=== PATIENT | female | born 1955 | race Caucasian/White ===

== ENCOUNTER → 2020-01-17 09:07 | Outpatient (CLI) | payer MEDICARE, MEDICAID, SELFPAY ==
--- NOTE | 2020-01-17 09:10 | CA_ITS ---
APPROVED REPORT EXAM: Comprehensive 2D, Doppler, and color-flow Echocardiogram Air Plant Engineer: Cinda Isabel CRT Ht: 5 ft 4 in Wt: 268lbs BSA: 2.22 BP: 189/66 mmHg Indications: CAD, Hyperlipidemia, Hypertension/HDD 2D Dimensions LVOT 2.09 cm (M/F) 1.5-2.5 M-Mode Dimensions RVDd 2.86 cm (0.9-2.6) LA Diam 4.26 cm (1.9-4.0) LVDd 5.09 cm (3.5-5.7) Ao Diam 3.96 cm (2.0-3.7) LVDs 3.10 cm (3.5-5.7) IVSd 1.41 cm (0.6-1.1) PWd 1.12 cm (0.6-1.1) EF (Teich) 69.20% FS 39.10% EDV (Teich) 123.20 mL ESV (Teich) 37.90 mL LV Diastology E Decel Time 150.00 (160-240 msec) E/A Ratio 1.9 MED E' 7.20 (< 7 cm/sec) E'/MED E' Ratio 16.28 (>14) LAT E' 8.10 (<10 cm/sec) E/LAT E' Ratio 14.47 (>14) Aortic Valve AO Peak GR. 7.70 mmHg Mitral Valve MV E Max Michael. 117.00 (40-130 cm/s) MV A Velocity 62.00 (40-130 cm/s) E/A Ratio 1.88 MV Decel. Time 150.00 (160-240 ms) MV PHT 44.00 ms Pulmonary Valve PV Peak Velocity 80.00 (50-150 cm/s) Tricuspid Valve TR P. Velocity 300.00 cm/s RAP Estimate 10.00 mmHg RVSP 46.00 mmHg Left Ventricle Left atrium is mildly enlarged, left ventricle is normal size, mild concentric left ventricular hypertrophy, visually estimated ejection fraction 55% with no regional wall motion abnormality, grade 2 diastolic dysfunction seen with tissue Doppler evidence of raise left atrial pressure. Right Ventricle Right atrium and right ventricle mildly enlarged with normal contractility. Aortic Valve Aortic valve is minimally thickened and fibrosed, there is no aortic stenosis or aortic insufficiency. Mitral Valve Mitral valve grossly normal, there is mild mitral regurgitation. Tricuspid Valve Tricuspid valve is grossly normal, there is mild tricuspid regurgitation, tricuspid regurgitation jet velocity is inadequate for calculation of the right ventricular systolic pressure. Pulmonic Valve Pulmonic valve is poorly visualized. Great Vessels Aortic root is normal size. Pericardium No significant pericardial effusion noted. Conclusion 1. Technically difficult study because of the patient factors and poor acoustic windows. 2. Mild biatrial alignment, normal left ventricular size, mild concentric left ventricular hypertrophy, visually estimated ejection fraction 55% with no regional wall motion abnormality, grade 2 diastolic dysfunction seen with tissue Doppler evidence of raise left atrial pressure. 3. Mild mitral and tricuspid regurgitation. 4. Mildly enlarged right ventricle with normal contractility. 5. No significant pericardial effusion noted. Electronically signed by : Angel Lucero, 01/18/2020 05:33:14
== END ==
PROVIDERS: PCP Physician Assistant Medical; Visit Provider Urology
DX: E78.2 Mixed hyperlipidemia (principal); I11.0 Hypertensive heart disease with heart failure; I25.10 Atherosclerotic heart disease of native coronary artery without angina pectoris; I50.32 Chronic diastolic (congestive) heart failure; R94.31 Abnormal electrocardiogram [ECG] [EKG]
CPT/HCPCS: 93306

== ENCOUNTER → 2021-12-03 10:20 | Outpatient (CLI) | payer MEDICARE, MEDICAID, SELFPAY ==
[2021-12-03 10:29] LABS: MANUAL DIFFERENTIAL MANUAL DIFFERENTIAL (MANUAL DIFF)
[2021-12-03 11:55] LABS: Basophils % 0.6 % (0.1-2.0); Eosinophils # 0.1 K/mm3 (0.0-0.4); Eosinophils % 1.3 % (0.1-12.0); Hemoglobin 12.2 g/dL (12.2-16.2); Lymphocytes % 17.3 % (10-50); Mean Corpuscular HGB Conc 32.9 g/dL (31.8-35.4); Mean Corpuscular Hemoglobin 27.8 pg (27.0-31.2); Mean Corpuscular Volume 84.4 fl (81-99); Mean Platelet Volume 8.6 fl (7.4-10.4); Monocytes # 0.5 K/mm3 (0.1-1.0); Monocytes % 8.1 % (1.7-9.3); Neutrophils # 4.3 K/mm3 (1.8-7.8); Neutrophils % 72.8 % (37.0-80.0); Platelet Count 238 K/mm3 (142-424); Red Blood Count 4.39 M/mm3 (4.20-5.40); Red Cell Distribution Width 15.5 % (11.5-17.5); White Blood Count 5.9 K/mm3 (4.8-10.8)
[2021-12-03 12:05] LABS: Lymphocytes % 16 % (10-50); Monocytes % 6 % (2-9); Neutrophils % 78 % (42-76); Platelet Estimate Normal; RBC Morphology Normal; Total Cells Counted 100
[2021-12-03 12:17] LABS: Anion Gap 15.7 mEq/L (5-15); Blood Urea Nitrogen 11 mg/dl (7-17); Calcium 9.4 mg/dl (8.4-10.2); Carbon Dioxide 27 mmol/L (22.0-30.0); Chloride 90 mmol/L (98-107); Estimated Glomerular Filt Rate 161 ml/min (>60); GFR (African American) 194 ML/MIN (>60); Glucose 121 mg/dl (74-100); Potassium 4.7 mmoL/L (3.5-5.1); Sodium 128 mmol/L (136-145)
== END ==
PROVIDERS: PCP Physician Assistant Medical; Visit Provider Internal Medicine
DX: I25.10 Atherosclerotic heart disease of native coronary artery without angina pectoris (principal)
CPT/HCPCS: 36415; 80048; 85007; 85014; 85018; 85048; 85049

== ENCOUNTER → 2021-12-18 10:46 | Outpatient (CLI) | payer MEDICARE, MEDICAID, SELFPAY ==
--- NOTE | 2021-12-18 | CA_ITS ---
APPROVED REPORT Exam: Pharmacologic Technologist: Janet Bejarano, Ht: 5 ft 4 in Wt: 251 lbs BSA: 2.16 m2 HR: 58 bpm BP: 186/78 mmHg Rhythm: SINUS KRYSTYNA, POOR R WAVE PROGRESSION, CANNOT R/O OLD ANTERIOR MD Medical History Medical History: HTN, Hyperlipidemia, Diabetes Medications: Lisinopril,,,,, Aspirin,,,,, Metformin,,,,, Allopurinol,,,,, Pantoprazole,,,,, Carvedilol,,,,, Vit D3,,,,, Tolterodine ER,,,,, LoraTADINE,,,,, Tizanidine,,,,, AtorvaASTATIN,,,,, Oxcarbazepine,,,,, Allergies: HYDROCHLOROTHIAZIDR, CODEINE, IODINATED CONTRAST, TOLEMETIN Cardiac Risk Factors: HTN, Hyperlipidemia, Diabetes , FHX of CAD, Smoking Stress Test Details Test: LEXISCAN HR Resting HR: 58 bpm Max Heart Rate (APMHR): 156.476117 bpm Max HR Achieved: 77 bpm Target HR (85% APMHR): 132.067107 bpm % of APMHR: 49.36 Recovery HR: 66 bpm BP Resting BP: 186/78 mmHg Max BP: 186/78 mmHg Recovery BP: 162.0/71.0 mmHg ECG Resting ECG: SINUS KRYSTYNA, POOR R WAVE PROGRESSION, CANNOT R/O OLD ANTERIOR MD Clinical Exercise duration: 04:00 min Highest Stage Achieved: Exercise capacity: 1.0 METs Stress ECG Conclusion PT HAD SOA, HEAD DISCOMFORT, DISCOMFORT IN UPPER BACK. NO CP. NO SIGNIFICANT CHANGES. UNREMARKABLE LEXISCAN STRESS. MYOVIEW IMAGES REPORTED SEPARATELY. Electronically signed by : Angel Lucero MD 12/19/2021 06:11:38
--- NOTE | 2021-12-18 10:51 | CA_ITS ---
FINAL REPORT CLINICAL HISTORY: HTN,HLD,OBESITY FINDINGS: Aorta velocity: 181 cm/sec Right kidney: 12.6 cm. No evidence of hydronephrosis or mass. Right intrarenal RI: 0.78 Right renal artery velocity: 189 cm/sec. Right RAR (Renal artery-Aortic Ratio): 1.04 Left Kidney: 12.0 cm. No evidence of hydronephrosis or mass. Left intrarenal RI: 0.74 Left renal artery velocity: 190 cm/sec. Left RAR (Renal Artery-Aortic Ratio): 1.05 IMPRESSION: Less than 60% bilateral renal artery stenosis. If indicated, CTA or catheter directed angiography could further evaluate. Reviewed, Interpreted and Dictated by Adelso Low III, MD Transcribed by Kris Reyes Authenticated and [facility]
--- NOTE | 2021-12-18 11:17 | NM_ITS ---
APPROVED REPORT Exam: Nuclear Stress Test Indication: chest pain..short of breath..fatigue Patient Location: Outpatient Stress Tech: Janet Bejarano NM Tech:Jayla YatesELLA RT (R)(N)(M) Ht: 5 ft 3 in Wt: 251 lbs Bra Size: 46c HR: 58 bpm BP: 186/78 mmHg BSA: 2.13 m2 TID: 1.27 BMI: 44.4 History: chest pain..short of breath..fatigue Procedure: Patient received a 0.4 mg of intravenous Lexiscan, resting heart rate 58 bpm, resting blood pressure 186/78 mmHg, with Lexiscan maximum heart rate achived was 77 bpm which is Less than 85 % of the maximum predicted heart rate and blood pressure was 150/57 mmHg. With Lexiscan, patient denied any complaint of chest pain. Electrocardiogram Resting electrocardiogram shows sinus bradycardia, with Lexiscan there is less than 1.[address] segment depression noted from the baseline EKG. The EKG portion of the Lexiscan is nondiagnostic. Cardiac Stress and Resting SPECT Images: Cardiac Stress and Resting SPECT images were obtained using technetium 99m Myoview 30.6 mCi stress and 9.97 mCi at rest. Gated SPECT analysis of segmental wall motion and calculation of ejection fraction also done. Prone images were also obtained. Cardiac stress and rest SPECT images show a mild fixed defect in the inferior wall which normalizes on the prone images is likely secondary to his soft tissue attenuation, no reversible ischemia seen, computer derived ejection fraction is 58% with no regional wall motion abnormality, right ventricle is normal size and contractility. Conclusion: 1. The EKG portion of the Lexiscan is nondiagnostic. 2. No scintigraphic evidence of reversible ischemia seen, computer derived ejection fraction is 58% with no regional wall motion abnormality, right ventricle is normal size and contractility. 3. Normal Lexiscan Myoview study. Electronically signed by : Angel Lucero MD 12/19/2021 06:15:13
== END ==
PROVIDERS: PCP Family Medicine; Visit Provider Nurse Practitioner Family
DX: I10 Essential (primary) hypertension (principal); I50.32 Chronic diastolic (congestive) heart failure
CPT/HCPCS: 78452; 93017; 93976; A9502; J2785

== ENCOUNTER → 2022-01-02 13:01 | Outpatient (CLI) | payer MEDICARE, MEDICAID, SELFPAY ==
--- NOTE | 2022-01-02 13:03 | CA_ITS ---
APPROVED REPORT EXAM: Comprehensive 2D, Doppler, and color-flow Echocardiogram Supervisor Nuclear Medicine: Bertha Calixto RVT Ht: 5 ft 4 in Wt: 251lbs BSA: 2.16 BP: 182/81 mmHg Indications: soa,chf,cad,may,obesity,htn,hld,dm,ex-smoker 2D Dimensions LVOT 2.17 cm (M/F) 1.5-2.5 LA Volume 35.50 mL LA Volume Index 16.51 mL/m2 (M/F) 16-34 M-Mode Dimensions RVDd 3.56 cm (0.9-2.6) LA Diam 4.84 cm (1.9-4.0) LVDd 4.49 cm (3.5-5.7) Ao Diam 2.91 cm (2.0-3.7) LVDs 2.77 cm (3.5-5.7) IVSd 0.57 cm (0.6-1.1) PWd 0.66 cm (0.6-1.1) EF (Teich) 68.70% FS 38.30% EDV (Teich) 92.00 mL TAPSE 2.45 (<1.7) ESV (Teich) 28.80 mL LV Diastology E Decel Time 300.00 (160-240 msec) E/A Ratio 0.9 MED E' 5.60 (< 7 cm/sec) E'/MED E' Ratio 9.79 (>14) LAT E' 6.50 (<10 cm/sec) E/LAT E' Ratio 8.43 (>14) Aortic Valve AO Peak GR. 4.20 mmHg Mitral Valve MV E Max Michael. 55.00 (40-130 cm/s) MV A Velocity 58.00 (40-130 cm/s) E/A Ratio 0.94 MV Decel. Time 300.00 (160-240 ms) MV PHT 88.00 ms Pulmonary Valve PV Peak Velocity 93.00 (50-150 cm/s) Tricuspid Valve TR P. Velocity 276.00 cm/s RAP Estimate 10.00 mmHg RVSP 40.50 mmHg Left Ventricle Left atrium is mildly enlarged left ventricle normal size mild concentric left ventricular hypertrophy, estimated ejection fraction 55% with no regional wall motion abnormality, grade 1 diastolic dysfunction seen without tissue Doppler evidence of raise left atrial pressure. Right Ventricle Right atrium and right ventricle are mildly enlarged with normal contractility. Aortic Valve Aortic valve is minimally thickened and fibrosed there is no aortic stenosis or aortic insufficiency. Mitral Valve Mitral valve grossly normal, there is trace mitral regurgitation. Tricuspid Valve Tricuspid grossly normal, there is trace tricuspid regurgitation, tricuspid rotation replacement is inadequate for calculation of the right ventricular systolic pressure. Pulmonic Valve Pulmonic valve is poorly visualized. Great Vessels Aortic root is normal size. Pericardium No significant pericardial effusion noted. Inferior vena cava is poorly visualized. Conclusion 1. Mild biatrial enlargement, normal left ventricular size, mild concentric left ventricular hypertrophy, estimated ejection fraction 55% with no regional wall motion abnormality, grade 1 diastolic dysfunction seen without tissue Doppler evidence of raise left atrial pressure. 2. Mildly dilated ventricle with normal contractility. 3. Trace mitral and tricuspid regurgitation. 4. No significant pericardial effusion noted. 5. Inferior vena cava is poorly visualized. Electronically signed by : Angel Lucero MD 01/02/2022 21:15:15
[2022-01-02 13:35] LABS: MANUAL DIFFERENTIAL MANUAL DIFFERENTIAL (MANUAL DIFF)
[2022-01-02 14:43] LABS: Basophils # 0.1 K/mm3 (0-0.2); Basophils % 0.7 % (0.1-2.0); Eosinophils # 0.1 K/mm3 (0.0-0.4); Eosinophils % 1.8 % (0.1-12.0); Hematocrit 37.6 % (37.0-47.0); Hemoglobin 12.4 g/dL (12.2-16.2); Lymphocytes # 1.1 K/mm3 (0.7-4.5); Lymphocytes % 16.8 % (10-50); Mean Corpuscular HGB Conc 32.9 g/dL (31.8-35.4); Mean Corpuscular Hemoglobin 27.3 pg (27.0-31.2); Mean Corpuscular Volume 82.8 fl (81-99); Mean Platelet Volume 7.5 fl (7.4-10.4); Monocytes # 0.6 K/mm3 (0.1-1.0); Neutrophils # 4.5 K/mm3 (1.8-7.8); Neutrophils % 70.7 % (37.0-80.0); Platelet Count 333 K/mm3 (142-424); Red Blood Count 4.54 M/mm3 (4.20-5.40); Red Cell Distribution Width 15.1 % (11.5-17.5); White Blood Count 6.4 K/mm3 (4.8-10.8)
[2022-01-02 15:15] LABS: Alanine Aminotransferase 26 U/L (12-78); Albumin Level 4.3 g/dl (3.5-5.0); Alkaline Phosphatase 127 U/L (38-126); Anion Gap 15.9 mEq/L (5-15); Aspartate Amino Transferase 34 U/L (14-36); Bilirubin,Direct 0.2 mg/dl (0.0-0.4); Bilirubin,Indirect 0.2 mg/dL (0.0-0.9); Bilirubin,Total 0.4 mg/dl (0.2-1.3); Bilirubin,Unconjugated 0.2 mg/dL (0.0-1.1); Blood Urea Nitrogen 12 mg/dl (7-17); Calcium 9.6 mg/dl (8.4-10.2); Carbon Dioxide 32 mmol/L (22.0-30.0); Chloride 84 mmol/L (98-107); Estimated Glomerular Filt Rate 84 ml/min (>60); GFR (African American) 102 ML/MIN (>60); Glucose 91 mg/dl (74-100); Potassium 4.9 mmoL/L (3.5-5.1); Sodium 127 mmol/L (136-145); Total Protein,Serum 6.9 g/dl (6.3-8.2)
[2022-01-02 15:25] LABS: Free T4 (Free Thyroxine) 0.95 ng/dl (0.78-2.19)
[2022-01-02 15:40] LABS: Thyroid Stimulating Hormone 1.49 uIU/mL (0.465-4.68)
[2022-01-02 17:01] LABS: Eosinophils % 1 % (0-3); Lymphocytes % 22 % (10-50); Monocytes % 5 % (2-9); Neutrophils % 71 % (42-76); Total Cells Counted 100
[2022-01-02 17:02] LABS: Platelet Estimate Normal; RBC Morphology Normal
[2022-01-11 14:55] LABS: 1,25 Dihydroxy Vitamin D 49 pg/mL (.); 1,25-Dihydroxy, Vitamin D-2 <10 pg/mL (.); 1,25-Dihydroxy, Vitamin D-3 49 pg/mL (.)
== END ==
PROVIDERS: Visit Provider Nurse Practitioner
DX: E11.9 Type 2 diabetes mellitus without complications (principal); E66.01 Morbid (severe) obesity due to excess calories; E78.2 Mixed hyperlipidemia; E87.1 Hypo-osmolality and hyponatremia; G47.33 Obstructive sleep apnea (adult) (pediatric); I11.0 Hypertensive heart disease with heart failure; I20.8 Other forms of angina pectoris; I27.9 Pulmonary heart disease, unspecified; I50.32 Chronic diastolic (congestive) heart failure; R06.00 Dyspnea, unspecified; R53.83 Other fatigue; Z79.84 Long term (current) use of oral hypoglycemic drugs; Z68.41 Body mass index [BMI] 40.0-44.9, adult
CPT/HCPCS: 36415; 80048; 80076; 82652; 84439; 84443; 85007; 85014; 85018; 85048; 85049; 93306

== ENCOUNTER 2023-11-07 18:51 | Emergency (ER) | payer MEDICARE, MEDICAID, SELFPAY ==
[2023-11-07 18:51] VITALS: BP 180/100; PULSE 70; RESP 13; TEMP 37.1; O2SAT 98; BMI 42.5
--- NOTE | 2023-11-07 18:51 | ECG_ITS ---
APPROVED REPORT Exam: Resting ECG HR:75 bpm ECG Measurements Heart Rate 75 AXES OK 200 P 71 QRSd 98 QRS -32 QT 377 T 48 QTc 406 Conclusion SINUS RHYTHM WITH OCCASIONAL VENTRICULAR PREMATURE COMPLEXES LEFT AXIS DEVIATION [QRS AXIS < -30] LOW QRS VOLTAGE IN PRECORDIAL LEADS [QRS DEFLECTION < 1.0 mV IN CHEST LEADS] MODERATE VOLTAGE CRITERIA FOR LVH, CONSIDER NORMAL VARIANT [MEETS CRITERIA IN ONE OF: R(aVL), S(V1), R(V5), R(V5/V6)+S(V1)] POSSIBLE ANTERIOR MYOCARDIAL INFARCTION , OF INDETERMINATE AGE [30 ms Q WAVE IN V3/V4, OR R < 0.2 mV IN V4] ABNORMAL ECG Electronically signed by : JANIYA HAZEL, 11/11/2023 18:23:36
--- NOTE | 2023-11-07 18:58 | XR_ITS ---
PROCEDURE INFORMATION: Exam: XR Chest Exam date and time: 11/07/2023 7:00 PM Age: 68 years old Clinical indication: Pain; Chest pressure; Additional info: Cp hypertension TECHNIQUE: Imaging protocol: Radiologic exam of the chest. Views: 1 view. COMPARISON: No relevant prior studies available. FINDINGS: Lungs: No evidence of acute pulmonary disease or infiltrates Pleural spaces: No large effusion or pneumothorax. Heart/Mediastinum: No evidence of mediastinal widening or cardiac silhouette enlargement; the mediastinum and heart appear within normal limits for contour and size. Vasculature: There are calcifications of the aortic arch. Bones/joints: No evidence of acute osseous abnormalities within the visualized portions of the thoracic spine and ribs. Osseous structures appear appropriate for patient age. IMPRESSION: No dense parenchymal consolidation, pleural effusion, or pneumothorax.
[2023-11-07 19:12] LABS: Lactate Venous 1.8 mmol/L (0.4-2.0); VBG Base Excess 8.3 mmol/L (-2.4-2.3); VBG HCO3 32.7 mmol/L (23-30); VBG Oxygen Saturation 77.2 % (50-70); VBG PH 7.42 mmol/L (7.31-7.41); VBG PO2 42.1 mmol/L (28-40); VBG Total CO2 34.3 mmol/L (23-27)
[2023-11-07 19:12] LABS: Basophils # 0.1 K/mm3 (0-0.2); Eosinophils # 0.1 K/mm3 (0.0-0.4); Hematocrit 44.6 % (37.0-47.0); Hemoglobin 14.4 g/dL (12.2-16.2); Lymphocytes # 1.1 K/mm3 (0.7-4.5); Lymphocytes % 15.1 % (10-50); Mean Corpuscular HGB Conc 32.3 g/dL (31.8-35.4); Mean Corpuscular Hemoglobin 30.8 pg (27.0-31.2); Mean Corpuscular Volume 95.3 fl (81-99); Mean Platelet Volume 8.3 fl (7.4-10.4); Monocytes # 0.5 K/mm3 (0.1-1.0); Monocytes % 6.6 % (1.7-9.3); Neutrophils # 5.5 K/mm3 (1.8-7.8); Neutrophils % 76.2 % (37.0-80.0); Platelet Count 236 K/mm3 (142-424); Red Blood Count 4.68 M/mm3 (4.20-5.40); Red Cell Distribution Width 14.3 % (11.5-17.5); White Blood Count 7.2 K/mm3 (4.8-10.8)
[2023-11-07] MEDS: ASPIRIN 81MG CHEWABLE TABLET 324 MG PO (19:12)
[2023-11-07 19:14] LABS: VBG PCO2 51.2 mmol/L (35-51)
--- NOTE | 2023-11-07 19:15 | PC.NURSE ---
Received critical from lab on patient VBG. aware of values. See lab results.
[2023-11-07 19:17] LABS: INR 0.92 (0.9-1.1); Prothrombin Time 10.4 seconds (10.1-12.5)
[2023-11-07 19:30] LABS: Alanine Aminotransferase 28 U/L (12-78); Albumin Level 4.2 g/dl (3.5-5.0); Albumin/Globulin Ratio 1.2 (1.1-1.8); Alkaline Phosphatase 92 U/L (38-126); Anion Gap 9.1 mEq/L (5-15); Aspartate Amino Transferase 35 U/L (14-36); Bilirubin,Total 0.6 mg/dl (0.2-1.3); Blood Urea Nitrogen 7 mg/dl (7-17); Calcium 10.1 mg/dl (8.4-10.2); Carbon Dioxide 34 mmol/L (22.0-30.0); Chloride 99 mmol/L (98-107); Chol/HDL Ratio 2.4 (1-3.5); Cholesterol 221 mg/dl (140-200); Creatinine Clearance Estimated 46 mL/min (50-200); Estimated Glomerular Filt Rate 160 ml/min (>60); GFR (African American) 193 ML/MIN (>60); Globulin 3.5 g/dL (1.3-3.2); Glucose 110 mg/dl (74-100); HDL Cholesterol 93 mg/dl (40-60); Lipase 35 U/L (23-300); Magnesium 1.4 mg/dl (1.6-2.3); Potassium 3.1 mmoL/L (3.5-5.1); Sodium 139 mmol/L (136-145); Total Protein,Serum 7.7 g/dl (6.3-8.2); Triglycerides 161 mg/dl (30-150); VLDL Cholesterol 32 mg/dL (0-40)
[2023-11-07] MEDS: NITROGLYCERIN 0.4MG SL TABLET 0.4 MG SL ×2 (19:35→20:39)
[2023-11-07 19:36] LABS: Activated Partial Thrombo Time 27.2 seconds (22.8-30.6)
--- NOTE | 2023-11-07 19:37 | ED_ITS ---
Discharge Plan Disposition Patient Disposition: Home, Self-Care Condition: Good Prescriptions Prescriptions: No Action allopurinol 300 mg tablet 300 mg PO DAILY amitriptyline 10 mg tablet 10 mg PO QHS aspirin [Aspir-Low] 81 mg tablet,delayed release (DR/EC) 81 mg PO DAILY loratadine [Allergy Relief (loratadine)] 10 mg tablet 10 mg PO DAILY PRN oxcarbazepine 150 mg tablet 600 mg PO QID PRN modafinil [Provigil] 200 mg tablet 200 mg PO QAM fluticasone propionate 50 mcg/actuation blister with device 1 inh INHALATION BID PRN vitamin [id number] B1 1,000-100 mg/mL solution IM .Q 2 weeks famotidine 40 mg tablet 40 mg PO BID budesonide 3 mg capsule,delayed,extend.release 6 mg PO DAILY Patient Comments: TAKE 2 CAPSULES BY MOUTH ONCE DAILY leflunomide 20 mg tablet 20 mg PO DAILY tizanidine 4 mg tablet 4 mg PO TID PRN metformin 1,000 mg tablet 1,000 mg PO BID Qty: 180 3RF lisinopril 40 mg tablet 40 mg PO DAILY Qty: 90 3RF hydralazine 50 mg tablet See Rx Instructions .ROUTE .COMPLEX Qty: 90 3RF Dose Instruction: TAKE ONE (1) TABLET BY MOUTH THREE TIMES A DAY Rx Instructions: TAKE ONE (1) TABLET BY MOUTH THREE TIMES A DAY nifedipine 90 mg tablet extended release 24hr See Rx Instructions .ROUTE .COMPLEX Qty: 180 1RF Dose Instruction: TAKE 1 TABLET BY MOUTH TWICE DAILY Rx Instructions: TAKE 1 TABLET BY MOUTH TWICE DAILY carvedilol 25 mg tablet See Rx Instructions .ROUTE .COMPLEX Qty: 180 1RF Dose Instruction: TAKE 1 TABLET BY MOUTH TWICE DAILY WITH FOOD Rx Instructions: TAKE 1 TABLET BY MOUTH TWICE DAILY WITH FOOD pantoprazole 40 mg tablet,delayed release (DR/EC) See Rx Instructions .ROUTE .COMPLEX Qty: 90 3RF Dose Instruction: TAKE ONE (1) TABLET BY MOUTH EVERY DAY Rx Instructions: TAKE ONE (1) TABLET BY MOUTH EVERY DAY atorvastatin [Lipitor] 40 mg tablet 40 mg PO DAILY Qty: 30 2RF Referrals Follow up/Referrals: Provider,Referral, MD [Primary Care Provider] - See instructions Activity Restrictions/Add. Instructions Additional Instructions/Restrictions: Call your family doctor to establish care for this visit to the emergency department and schedule follow-up within 48 hours to ensure improvement. If you have any worsening of your condition or any other concerning signs or symptoms, return to the emergency department or your primary care doctor for further evaluation. Talk to your doctor about follow-up potassium labs, possible potassium supplementation. Also call Dr. Pineda's office for further follow- up. Clinical Impressions Clinical Impression: Chest pressure Print Language Print Language: [place] Discharge ED Provider: Shyam Prajapati HPI General Chief Complaint: Chest Pain Stated Complaint: chest pain Time Seen by Provider: 11/07/23 18:58 Mode of Arrival: Ambulatory Source of Information: Patient Limitations: No Limitations Description of Symptoms (Recalled from ER Triage Doc. by RN): pt presents to ED with c/o heaviness in chest, hypertension, almost passed out. pt reports she has been having spells for the past week. pt does follow dr pineda, pt reports she does follow with dr pineda. History of Present Illness HPI narrative: Please note that above description of symptoms, in this electronic medical record under categorization of recalled from ER triage doctor by RN are reflective of an initial nursing assessment, however, is not reflective of my full history and physical exam that was personally taken and clarified. Consequentially, this preceding description of symptoms, which may include the patient's categorized chief complaint in the EMR, do not reflect my personal clinical impression, and the ultimate description of history of present illness and patient stated complaints should be deferred to this section of the note. Unless stated otherwise or congruent with this section of the note, additional signs, symptoms, or incongruence should be interpreted as inaccurate with my clinical impression. Related Data Home Medications ?Medication ?Instructions ?Recorded ?Confirmed allopurinol 300 mg tablet 300 mg PO DAILY 07/18/17 06/02/23 amitriptyline 10 mg tablet 10 mg PO QHS 07/18/17 06/02/23 aspirin 81 mg tablet,delayed 81 mg PO DAILY 07/18/17 06/02/23 release (Aspir-Low) loratadine 10 mg tablet (Allergy 10 mg PO DAILY PRN 09/01/17 06/02/23 Relief (loratadine)) vitamin [id number] B1 1,000 ml IM .Q 2 weeks 12/27/19 06/02/23 mcg-100 mg/mL injection solution leflunomide 20 mg tablet 20 mg PO DAILY 12/03/21 06/02/23 modafinil 200 mg tablet (Provigil) 200 mg PO QAM 12/03/21 06/02/23 oxcarbazepine 150 mg tablet 600 mg PO QID PRN 12/03/21 06/02/23 tizanidine 4 mg tablet 4 mg PO TID PRN 12/03/21 06/02/23 budesonide 3 mg 6 mg PO DAILY 06/02/23 06/02/23 capsule,delayed,extended release famotidine 40 mg tablet 40 mg PO BID 06/02/23 06/02/23 fluticasone propionate 50 1 inh inhalation BID PRN 06/02/23 06/02/23 mcg/actuation blister powder for inhalation Previous Rx's ?Medication ?Instructions ?Recorded metformin 1,000 mg tablet 1,000 mg PO BID #180 tabs 01/14/18 lisinopril 40 mg tablet 40 mg PO DAILY #90 tabs 03/05/23 hydralazine 50 mg tablet See Rx Instructions .Route 07/02/23 .COMPLEX #90 tabs nifedipine 90 mg tablet,extended See Rx Instructions .Route 08/12/23 release 24 hr .COMPLEX #180 tabs carvedilol 25 mg tablet See Rx Instructions .Route 09/18/23 .COMPLEX #180 tabs pantoprazole 40 mg tablet,delayed See Rx Instructions .Route 10/27/23 release .COMPLEX #90 tabs atorvastatin 40 mg tablet (Lipitor) 40 mg PO DAILY #30 tabs 11/04/23 Allergies Allergy/AdvReac Type Severity Reaction Status Date / Time hydrochlorothiazide Allergy Severe hyponatremi Verified 06/02/23 10:53 a codeine AdvReac Verified 06/02/23 10:53 Iodinated Contrast Media AdvReac Verified 06/02/23 10:53 [Iodinated Contrast Media - Oral and] tolmetin [From Tolectin] AdvReac Verified 06/02/23 10:53 [facility] Disclaimer: The information contained in this section may have been updated after the patient was seen, as this information can be updated by other users. Medical History Encounter for pre-operative cardiovascular clearance Malignant hypertension Dyspnea CAD (coronary artery disease) Diabetes mellitus Fatigue Chronic pulmonary heart disease Obstructive sleep apnea syndrome Hypertensive heart disease Hyperlipidemia Neuropathy Congestive heart failure (~07/22/16) Social History Smoking Status: Current every day smoker alcohol intake: never substance use type: denies use current occupational status: employed, unemployed and disabled Travel in the last 8 weeks: Inside the [place] ROS Obtained: Yes All systems reviewed & no additional complaints except as documented Physical Exam General General appearance: alert, in no apparent distress and anxious Neck Neck exam: Present trachea midline Chest Chest inspection: Present normal inspection and symmetric chest wall rise Respiratory Respiratory exam: Present normal lung sounds bilaterally; Absent respiratory distress, wheezes, stridor, accessory muscle use or prolonged expiratory phase Cardiovascular Cardiovascular exam: Present regular rate, normal rhythm and other (Pulses equal and symmetric in upper and lower extremities) Extremities Exam Extremities exam: Absent edema Neurological Exam Neurological exam: Present alert, oriented X3, CN II-XII intact and normal gait; Absent motor sensory deficit Skin Skin exam: Present warm and dry; Absent cyanosis, diaphoresis or pallor HEART Score HEART Score HEART Score assessment performed?: Yes History (anamnesis): Moderately suspicious ECG: Normal Age: >65 years Risk factors: 3 or more risk factors Troponin: </= normal limit HEART Score: 5 Critical Care Critical Care Time Critical Care Time: No Medical Decision Making Medical Records Medical records reviewed: Yes I reviewed the patient's medical records. Eric Inquiry Pt receiving controlled substance: No Eric was queried for this patient: No Vital Signs Vital Signs: 11/07/23 18:51 11/07/23 22:30 11/07/23 23:22 Temperature 98.7 F 97.9 F Temperature Source Oral Oral Pulse Rate 78 58 L Pulse Rate [Left Radial] 70 Respiratory Rate 13 16 Blood Pressure 164/54 H Blood Pressure [Right Arm] 180/100 H Blood Pressure Mean [Right Arm] 126 Blood Pressure Source Automatic Cuff Blood Pressure Position Sitting 02 Sat by Pulse Oximetry 98 Oxygen Delivery Method Room Air Room Air 11/07/23 23:24 Temperature 97.9 F Temperature Source Oral Pulse Rate 57 L Pulse Rate [Left Radial] Respiratory Rate 20 Blood Pressure 164/54 H Blood Pressure [Right Arm] Blood Pressure Mean [Right Arm] Blood Pressure Source Automatic Cuff Blood Pressure Position Supine 02 Sat by Pulse Oximetry Oxygen Delivery Method Room Air Lab Data Labs: Lab Results 11/07/23 18:54: WBC 7.2, RBC 4.68, Hgb 14.4, Hct 44.6, MCV 95.3, MCH 30.8, MCHC 32.3, RDW 14.3, Plt Count 236, MPV 8.3, Neut % (Auto) 76.2, Lymph % (Auto) 15.1, [place] % (Auto) 6.6, Eos % (Auto) 1.0, Baso % (Auto) 1.0, Neut # (Auto) 5.5, Lymph # (Auto) 1.1, [place] # (Auto) 0.5, Eos # (Auto) 0.1, Baso # (Auto) 0.1, PT 10.4, INR 0.92, APTT 27.2, D-Dimer 0.46, Sodium 139, Potassium 3.1 L, Chloride 99, C arbon Dioxide 34 H, Anion Gap 9.1, BUN 7, Creatinine 0.40 L, Estimated Creat Clear 46, Estimated GFR 160, Est GFR ( Amer) 193, Glucose 110 H, Hemoglobin A1c 5.5, Calcium 10.1, Magnesium 1.4 L, Total Bilirubin 0.6, AST 35, ALT 28, Alkaline Phosphatase 92, Troponin I < 0.01, NT-Pro-B Natriuret Pep 324 H , Total Protein 7.7, Albumin 4.2, Globulin 3.5 H, Albumin/Globulin Ratio 1.2, T riglycerides 161 H, Cholesterol 221 H, LDL Cholesterol Direct 81.36 L, VLDL Cholesterol 32, HDL Cholesterol 93 H, Cholesterol/HDL Ratio 2.4, Lipase 35, TSH 1.61, Thyroxine (T4) 10.3 11/07/23 19:01: Lactate 0.8 11/07/23 19:05: VBG pH 7.42 H, VBG pCO2 51.2 H, VBG pO2 42.1 H, VBG HCO3 32.7 H, VBG Total CO2 34.3 H, VBG O2 Saturation 77.2 H, VBG Base Excess 8.3 H, VBG Lactic Acid 1.8 11/07/23 22:08: Troponin I 0.02 11/07/23 18:54 11/07/23 18:54 Response Orders (Tests/Meds): ED MEDICATIONS Discontinued Medications Generic Name Dose Route Start Last Admin Trade Name Freq PRN Reason Stop Dose Admin Aspirin 324 mg 11/07/23 18:58 11/07/23 19:12 Aspirin 81mg Chewable Tablet PO 11/07/23 18:59 324 mg ONCE ONE Administration Furosemide 40 mg 11/07/23 20:42 11/07/23 20:48 Furosemide 40mg/4ml Vial IV 11/07/23 20:43 40 mg ONCE ONE Administration Magnesium Sulfate 2 gm in 50 mls @ 50 mls/hr 11/07/23 19:41 11/07/23 19:51 Magnesium Sulfate 2gm/50ml Premix IV 11/07/23 20:40 50 mls/hr ONCE ONE Administration Magnesium Oxide 800 mg 11/07/23 19:41 11/07/23 19:51 Magnesium Oxide 400mg Tablet PO 11/07/23 19:42 800 mg ONCE ONE Administration Nitroglycerin 0.4 mg 11/07/23 19:34 11/07/23 19:35 Nitroglycerin 0.4mg Sl Tablet SL 11/07/23 19:35 0.4 mg ONCE ONE Administration Nitroglycerin 0.4 mg 11/07/23 20:25 11/07/23 20:39 Nitroglycerin 0.4mg Sl Tablet SL 11/07/23 20:26 0.4 mg ONCE ONE Administration Potassium Chloride 60 meq 11/07/23 19:41 11/07/23 19:51 Potassium Chloride 20meq Tab PO 11/07/23 19:42 60 meq ONCE ONE Administration ORDERS Category Date Time Status XR chest portable Stat Exams 11/07/23 18:58 Completed Complete Blood Count Auto Diff Stat Lab 11/07/23 18:54 Completed Comprehensive Metabolic Panel Stat Lab 11/07/23 18:54 Completed D-Dimer Stat Lab 11/07/23 18:54 Completed Hemoglobin A1C Stat Lab 11/07/23 18:54 Completed Lactic Acid Stat Lab 11/07/23 19:01 Completed Lipase Stat Lab 11/07/23 18:54 Completed Lipid Panel Stat Lab 11/07/23 18:54 Completed Magnesium Stat Lab 11/07/23 18:54 Completed NT Pro Brain Natriuretic Pep. Stat Lab 11/07/23 18:54 Completed PT INR [Prothrombin Time INR] Stat Lab 11/07/23 18:54 Completed PTT [Activated Partial Thrombo Time] Stat Lab 11/07/23 18:54 Completed T4 (Thyroxine) Stat Lab 11/07/23 18:54 Completed TSH [Thyroid Stimulating Hormone] Stat Lab 11/07/23 18:54 Completed Troponin I Q3H Lab 11/07/23 22:08 Completed Troponin I Stat Lab 11/07/23 18:54 Completed Venous Blood Gas Stat RT 11/07/23 19:05 Completed MDM Narrative Medical Decision Narrative: 68-year-old female history of CAD without stents, hypertension, hyperlipidemia presenting with chest pain and nearly passing out. Patient states that she has been having these episodes on and off for the past few days. States that she feels as if she is going to pass out, gets tunnel vision and vision gives out, then she almost passes out, does not pass out, takes her blood pressure and her blood pressure is high. States that it usually runs around 140s. Been running closer to 180s to 200s during these times. Having chest heaviness at this time that does not radiate, associated with subjective pallor and nausea without vomiting or diaphoresis. Denies neurologic, shortness of breath, or any other concerns. History was obtained via conversation with patient and chart review. On arrival, patient hemodynamically stable, alert, oriented x4, appropriate, GCS 15, moving all extremities spontaneously, pupils equal and reactive to light. Full physical exam performed and significant for very well- appearing female who is anxious, but in no acute distress. Cardiac exam normal without murmurs gallops rubs, pulses equal and symmetric in upper and lower extremities. No lower extremity edema. Lungs are clear to auscultation bilaterally. Mildly hypertensive, nontachycardic, saturating 98 to 100% on room air. Differential includes ACS, PA, pneumothorax, pneumonia, CHF exacerbation, illness anxiety disorder, anxiety, vasovagal, orthostatic, among others. Patient was given aspirin, nitroglycerin for symptomatic management and correction of underlying abnormalities. Patient placed on continuous cardiac monitoring and continuous pulse ox with initial blood pressure 180/100, heart rate 70, saturation 98% on room. Independent interpretation of EKG shows sinus rhythm 75 beats a minute no ST or T wave changes concerning for acute ischemia. MA interval 200 ms, QRS 98, QTc 406.. Workup independently interpreted and significant for nonactionable CBC. Coags are normal. Patient's VBG nonactionable. Chemistry with mild hypokalemia hypomagnesemia, both of these were repleted IV and p.o. Lipid panel with elevated triglycerides and cholesterol. Lipase negative. On independent interpretation of imaging, cardiomegaly without overt pulmonary edema or pleural effusions. See radiology read for full review of final results. Heart score 5. Patient was placed in observation beginning at 7 PM in order to rule out evolving PA with delta troponins and determine need for admission versus home- going. The patient was provided serial exams, cardiac monitoring, Lasix while awaiting results. Independent interpretation of results demonstrated negative delta troponin. On reevaluation, patient without any acute complaints, symptoms are resolved. Hemodynamics are also improved. At this time, I feel patient is appropriate for discharge. Total observation time 4 hours. I spoke to senior oracle database developer briefly, recommended outpatient management if symptoms are abated, that is the case currently. I feel she is appropriate for outpatient management. Because patient at baseline without signs or symptoms of clinical decompensation, deemed appropriate for discharge. Results were relayed to patient who voiced understanding and were agreeable to outpatient management and follow up. I discussed my clinical impression with patient and answered all questions. At this time, the evidence for any other entities in the differential is insufficient to warrant any further testing or ED observation. This was explained as well. Advisory was given that persistent or worsening symptoms require further evaluation. I confirmed the understanding of this discussion. Machine Assembler disclaimer Much of this encounter note is an electronic demonstrator electric gas appliances spoken language to printed text. Electronic demonstrator electric [employer] appliances of the spoken language may permit errors. Although I have reviewed the note, some errors may still exist.
[2023-11-07 19:41] LABS: Direct LDL Cholesterol 81.36 mg/dL (100-129)
[2023-11-07 19:46] LABS: D-Dimer 0.46 ug/mL (0.0-0.5)
[2023-11-07 19:51] LABS: T4 (Thyroxine) 10.3 ug/dl (5.53-11.0)
[2023-11-07] MEDS: MAGNESIUM SULFATE IN WATER 2 GM/50 ML PIGGYBACK IV (19:51)
[2023-11-07] MEDS: MAGNESIUM OXIDE 400MG TABLET 800 MG PO (19:51)
[2023-11-07] MEDS: POTASSIUM CHLORIDE 20MEQ TAB 60 MEQ PO (19:51)
[2023-11-07 19:58] LABS: Troponin I < 0.01 ng/ml (0.00-0.034)
[2023-11-07 20:03] LABS: NT Pro Brain Natriuretic Pep. 324 pg/mL (0-125)
[2023-11-07 20:04] LABS: Thyroid Stimulating Hormone 1.61 uIU/mL (0.465-4.68)
[2023-11-07 20:29] LABS: Hemoglobin A1C 5.5 % (4.0-6.0)
--- NOTE | 2023-11-07 20:38 | PC.NURSE ---
rounded on pt. needed pillow. c/o chest heaviness, let the nurse know, and they went in room
[2023-11-07] MEDS: FUROSEMIDE 40MG/4ML VIAL 40 MG IV (20:48)
[2023-11-07 21:18] LABS: Lactic Acid 0.8 mmol/L (0.7-2.1)
[2023-11-07 22:30] VITALS: PULSE 78
[2023-11-07 22:38] LABS: Troponin I 0.02 ng/ml (0.00-0.034)
[2023-11-07 23:22] VITALS: BP 164/54; PULSE 58; RESP 16; TEMP 36.6; O2SAT 95
[2023-11-07 23:24] VITALS: BP 164/54; PULSE 57; RESP 20; TEMP 36.6; O2SAT 100
== END 2023-11-07 23:27 | disposition home or self-care (01) ==
PROVIDERS: Emergency Provider Emergency Medicine
DX: R07.9 Chest pain, unspecified (principal); I27.9 Pulmonary heart disease, unspecified; I25.10 Atherosclerotic heart disease of native coronary artery without angina pectoris; E11.9 Type 2 diabetes mellitus without complications; J44.9 Chronic obstructive pulmonary disease, unspecified; I11.0 Hypertensive heart disease with heart failure; I50.9 Heart failure, unspecified; G62.9 Polyneuropathy, unspecified; E78.5 Hyperlipidemia, unspecified; F17.200 Nicotine dependence, unspecified, uncomplicated
CPT/HCPCS: 71045; 80050; 80053; 80061; 82803; 83036; 83605; 83690; 83735; 83880; 84436; 84443; 84484; 85025; 85378; 85610; 85730; 93005; 96365; 96375; 99285; J1940; J3475